=== PATIENT | female | born 1960 | race Caucasian/White ===

== ENCOUNTER → 2016-10-09 | Outpatient (CLI) | payer OTHER ==
[~2016-10-09] MED LIST: ADVIN25/60 INH; ALBUAER2 INH; ATOR-22 PO; CHOL1TAB12 PO; DICL-201 PO; FLX/5 PO; GLC/500 PO; LEVO88TA3 PO; MULT-506 PO; PRT/40 PO; SERT-234 PO; VTMD PO
[2016-10-09 10:08] LABS: ALKALINE PHOSPHATASE 118 U/L (45-117); ALT/SGPT 51 U/L (12-78); AST/SGOT 22 U/L (15-37); BLOOD UREA NITROGEN 12 mg/dl (7-18); BUN/CREATININE RATIO 19.4 (10-20); CARBON DIOXIDE 28 mmol/L (21-32); CHLORIDE 100 mmol/L (98-107); CHOLESTEROL 220 mg/dl (0-200); CHOLESTEROL/HDL RATIO 5.6; CREATININE 0.63 mg/dl (0.60-1.20); GLUCOSE 261 mg/dl (70-99); HDL CHOLESTEROL 39 mg/dl; SODIUM 136 mmol/L (136-145)
[2016-10-09 10:14] LABS: LDL CHOLESTEROL CALCULATED 105 mg/dl; TRIGLYCERIDES 378 mg/dl (0-150); VERY LOW DENSITY LIPOPROT CALC 76 mg/dl
[2016-10-09 10:29] LABS: ESTIMATED AVERAGE GLUCOSE 243 mg/dl; HA1C FLAG Normal (Normal)
== END | disposition home or self-care (01) ==
LOC: C.LAB 06:47
PROVIDERS: ATTEND Family Medicine
DX: E11.9 Type 2 diabetes mellitus without complications (principal); E03.9 Hypothyroidism, unspecified

== ENCOUNTER → 2016-12-16 | Outpatient (CLI) | payer OTHER ==
[~2016-12-16] MED LIST changes: +PANT40TA2 PO; -PRT/40 PO
[2016-12-16 07:19] LABS: ESTIMATED AVERAGE GLUCOSE 243 mg/dl; HA1C FLAG Normal (Normal)
[2016-12-16 07:33] LABS: CHOLESTEROL/HDL RATIO 6.2
== END | disposition home or self-care (01) ==
LOC: C.LAB 06:43
PROVIDERS: ATTEND Family Medicine
DX: E11.9 Type 2 diabetes mellitus without complications (principal)

== ENCOUNTER → 2016-12-28 | Outpatient (CLI) | payer OTHER ==
--- NOTE | 2016-12-28 13:03 | MAMMOGRAPHY REPORT ---
BILATERAL DIGITAL SCREENING MAMMOGRAM TOMOSYNTHESIS WITH CAD: 12/28/2016 CLINICAL HISTORY: Routine screening. Patient has no complaints. TECHNIQUE: Breast tomosynthesis in addition to standard 2D mammography was performed. Current study was also evaluated with a Computer Aided Detection (CAD) system. COMPARISON: Comparison is made to exams dated: 09/30/2015 mammogram and 03/09/2011 mammogram - [facility]. BREAST COMPOSITION: There are scattered areas of fibroglandular density in both breasts. FINDINGS: No suspicious masses, calcifications, or areas of architectural distortion are noted in e ither breast. There has been no significant interval change compared to prior exams. IMPRESSION: ACR BI-RADS CATEGORY 1: NEGATIVE There is no mammographic evidence of malignancy. A 1 year screening mammogram is recommended. The p atient will receive written notification of the results. Approximately 10% of breast cancers are not detected with mammography. A negative mammographic repor t should not delay biopsy if a clinically suggestive mass is present. Coleen Jose M.D. ah/:12/28/2016 07:57:08 Video Surveillance Technician: Jeniffer SEVILLA(R)(Mary), [facility] letter sent: Normal 1/2 BI-RADS Code: ACR BI-RADS Category 1: Negative
== END | disposition home or self-care (01) ==
LOC: C.MAMM 07:35
PROVIDERS: ATTEND Family Medicine
DX: Z12.31 Encounter for screening mammogram for malignant neoplasm of breast (principal)

== ENCOUNTER → 2017-03-12 | Outpatient (CLI) | payer OTHER ==
[~2017-03-12] MED LIST changes: -PANT40TA2 PO; +PRT/40 PO
[2017-03-12 07:57] LABS: ESTIMATED AVERAGE GLUCOSE 229 mg/dl; HA1C FLAG Normal (Normal)
== END | disposition home or self-care (01) ==
LOC: C.LAB 00:54
PROVIDERS: ATTEND Family Medicine
DX: E11.9 Type 2 diabetes mellitus without complications (principal)

== ENCOUNTER → 2017-05-18 | Outpatient (CLI) | payer OTHER ==
[2017-05-18 05:54] LABS: ESTIMATED AVERAGE GLUCOSE 194 mg/dl; HA1C FLAG Normal (Normal)
== END | disposition home or self-care (01) ==
LOC: C.LAB 04:31
PROVIDERS: ATTEND Family Medicine
DX: E11.9 Type 2 diabetes mellitus without complications (principal)

== ENCOUNTER → 2017-12-19 | Outpatient (CLI) | payer OTHER ==
[~2017-12-19] MED LIST changes: +PANT40TA2 PO; -PRT/40 PO
[2017-12-19 16:59] LABS: CREATININE RANDOM URINE 62.1 mg/dl
== END | disposition home or self-care (01) ==
LOC: C.LABBFT 12:49
PROVIDERS: ATTEND Family Medicine
DX: E11.9 Type 2 diabetes mellitus without complications (principal)